=== PATIENT | female | born 1950 | race Caucasian/White ===

== ENCOUNTER 2017-03-09 09:29 | Observation (INO) ==
--- NOTE | 2017-03-09 10:10 | CT Report ---
Exam: CT brain without contrast Date: March 09, 2017 Comparison: None Reason: Headache and confusion The patient is an Emergency Department patient on March 09, 2017. Technique: Axial images of the head were obtained without the use of contrast. Total DLP was 1073.1 mGy*cm. Findings: No hydrocephalus or midline shift is present. There is no evidence of an acute infarction, recent intracranial hemorrhage or abnormal mass effect. The osseous structures appear intact. The mastoid air cells and visualized paranasal sinuses are clear. Impression: No acute intracranial abnormality is identified. The CT exam was performed using one or more of the following dose reduction techniques: Automated exposure control and adjustment of the mA and/or kV according to patient size. PROCEDURE INTERPRETED AT [facility] DEPARTMENT OF RADIOLOGY Final Report Signed by: Dr. Kun Aponte
[2017-03-09 10:38] LABS: Basophils % 0.5 % (0.0-0.8); Eosinophils # 0.4 10*3/uL (0.0-0.87); Eosinophils % 5.9 % (0.00-10.9); Hemoglobin 13.3 GM/DL (12.0-16.0); Immature Granulocytes % 0.4 %; Immature Granulocytes Absolute 0.03 #; Lymphocytes # 2.8 10*3/uL (1.4-4.0); Lymphocytes % 37.6 % (21.3-54.2); Mean Corpuscular HGB Conc 34.1 GM/DL (32-36); Mean Corpuscular Hemoglobin 30 PG (27-34); Mean Corpuscular Volume 88.6 FL (87-102); Mean Platelet Volume 12.2 FL (9.6-12.0); Monocytes # 0.5 10*3/uL (0.11-0.8); Monocytes % 7.3 % (1.7-12.7); Neutrophils # 3.6 10*3/uL (1.4-7.4); Neutrophils % 48.3 % (38.7-73.9); Platelet Count 227 T/CUMM (130-400); Red Cell Distribution Width 12.1 % (9.3-17.3); White Blood Count 7.4 T/CUMM (4-12)
--- NOTE | 2017-03-09 10:45 | EKG Report ---
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
[2017-03-09 11:02] LABS: Alanine Aminotransferase 25 U/L (13-56); Albumin 3.8 G/DL (3.4-5.0); Alkaline Phosphatase 96 U/L (45-117); Aspartate Amino Transferase 24 U/L (0-37); Blood Urea Nitrogen 11 MG/DL (7-18); Glucose 99 MG/DL (74-106); Osmolality,Calculated 275.5 MOS/KG (273-304); Potassium 4.1 MMOL/L (3.5-5.1); Sodium 139 MMOL/L (136-145); Total Protein 6.7 G/DL (6.4-8.3); Troponin I Only < 0.015 NG/ML (0.00-0.045)
[2017-03-09] MEDS ORDERED: ACETAMINOPHEN 500 MG TABLET PO STA (11:33)
[2017-03-09 11:36] LABS: Apearance,Urine CLEAR (Clear); Bilirubin,Urine Negative (Negative); Blood, Urine Negative (Negative); Glucose,Urine (UA) Negative (Negative); Ketones,Urine Negative (Negative); Nitrite,Urine Negative (Negative); Protein,Urine Negative; RBC,Urine 2 /HPF (0-4); Squamous Epithelial Cell,Urine Occasional /HPF (0-10); Urine Color Straw (Yellow); Urine Specific Gravity 1.004 (1.001-1.035); Urine Urobilinogen < 2.0 EU/DL (0.2-1.0); WBC,Urine 4 /HPF (0-6)
[2017-03-09] MEDS ORDERED: ACETAMINOPHEN 500 MG TABLET ONE (11:38)
--- NOTE | 2017-03-09 12:02 | Emergency Department Note ---
Carlos Gomez Brooke, am scribing for, and in the presence of, Kenan Mota Jr., MD 10:13. Nakul Gomez Marvin Jr., MD, personally performed the services described in this documentation, ascribed by Veronica Gonzalez in my presence, and it is both accurate and complete . Arrival - Arrival Chief Complaint: Altered Mental Status Stated Complaint: stroke ED Nursing Triage Note: reports pt had been confused since 0900 with a JACOB that started at 0845. Pt ambulatory without difficulty and denies focal weakness. Mode of Arrival: Ambulatory Limitations: No Limitations Source: Patient, Significant other (), Old Records Reviewed, RN Notes Reviewed Time Seen by Provider: 03/09/17 10:05 - History of Present Illness HPI Narrative: Patient is a 66 year old female who presents to the ED with c/o confusion. says she has been feeling "weird" this morning. says Patient started complaining of a sudden, sharp headache around 0845 this morning. She went to take a shower and when she got out, says she was in "normal" clothes and was supposed to be getting ready for sikh. He says Patient told him that "something is not right." Patient says she does not remember getting dressed after taking the shower. gave Patient five baby ASA before coming to the ED. On the way to the ED, says Patient started asking about her dad but states that her dad a month ago. Patient did not remember that her dad had and states that she "cried all the way to the hospital." Patient denies any current pain. She states she does not remember what she did last night. says she has been under a lot of stress lately. Patient has no medical problems. Onset (ago): hour(s) (2.5) Allergies/Adverse Reactions: Allergies Allergy/AdvReac Type Severity Reaction Status Date / Time No Known Allergies Allergy Verified 03/09/17 09:37 Review of System - Review of System 12 point system: reviewed and no additional remarkable complaints except as stated - Review of System Constitutional: Absent: fever Respiratory: Absent: respiratory distress Skin: Absent: rash Neurological: Present: headache, confusion Medical,Surgical,& Family Hx - Medical History Endocrine: History of: Thyroid Disorder - Social History Smoking Status: Never smoker Exam Physical Examination: General: Well-developed well-nourished, no apparent distress. Head: Normocephalic, atraumatic. Eyes: PERRLA, EOMI. Nose: No obvious acute deformities or discharge. Mouth: No obvious acute injury. Neck: Full range of motion without obvious pain. No midline tender to palpation. Lymphatic: no significant lymphadenopathy noted. Lungs: Clear to auscultation bilaterally, normal and equal air movement bilaterally, no obvious rales or wheezing. Heart: regular rate and rhythm, no obvious mummers. Abdomen: Soft nontender, nondistended, normal active bowel sounds. Skin: No obivous acute lesions noted Musculoskeletal: No gross deformities. Neurological: No focal findings, cranial nerves II through XII grossly normal. Patient follows directions, equal strength bilaterally, cranial nerves normal, patient does seem confused and little anxious. Does not remember previous events since last night. Psychiatric: Anxious, a little tearful : Deferred Vital Signs: Vital Signs Temperature 97.6 F 03/09/17 10:47 Pulse Rate 93 H 03/09/17 10:47 Respiratory Rate 18 03/09/17 10:47 Blood Pressure 153/102 03/09/17 10:47 O2 Sat by Pulse Oximetry 98 03/09/17 09:36 Course Course Narrative: Differential diagnosis: Stroke, global amnesia, stress related, - Reevaluation(s) Reevaluation #1: No obvious etiology for this acute onset of altered mental status and amnesia. No clinical symptoms of stroke and the CT is negative. Have discussed with the hospitalist and they will admit this patient. Time: 12:01 Results - Labs CBC & BMP: 03/09/17 10:25 03/09/17 10:24 Lab Results: I have reviewed the patients labs Labs: Laboratory Tests 03/09/17 10:25 WBC 7.4 RBC 4.40 Hgb 13.3 Hct 39.0 MCV 88.6 MCH 30 MCHC 34.1 RDW 12.1 Plt Count 227 MPV 12.2 H Neut % (Auto) 48.3 Lymph % (Auto) 37.6 White % (Auto) 7.3 Eos % (Auto) 5.9 Baso % (Auto) 0.5 Neut # (Auto) 3.6 Lymph # (Auto) 2.8 White # (Auto) 0.5 Eos # (Auto) 0.4 Baso # (Auto) 0.0 Immature Gran % 0.4 Nucleated RBC % 0.0 Immature Gran # 0.03 Nucleated RBCs # 0.00 Laboratory Tests 03/09/17 10:24 Sodium 139 Potassium 4.1 Chloride 103 Carbon Dioxide 27 Anion Gap 13.1 BUN 11 Creatinine 0.60 GFR Calculation 95 BUN/Creatinine Ratio 18.00 Glucose 99 Calculated Osmolality 275.5 Calcium 9.0 Total Bilirubin 0.40 AST 24 ALT 25 Alkaline Phosphatase 96 Troponin I < 0.015 Total Protein 6.7 Albumin 3.8 Globulin 2.9 Albumin/Globulin Ratio 1.3 Laboratory Tests 03/09/17 10:25 Urine Color Straw Urine Appearance Clear Urine pH 7.0 Ur Specific Entiat 1.004 Urine Protein Negative Urine Glucose (UA) Negative Urine Ketones Negative Urine Blood Negative Urine Nitrate Negative Urine Bilirubin Negative Urine Urobilinogen < 2.0 H Urine Leukocytes Negative Urine RBC 2 Urine WBC 4 Ur Squamous Epith Cells Occasional Ur Culture Indicated? Not indicated - EKG EKG results: interpreted by ERMD (Heart rate 71, normal sinus rhythm, regular rhythm, no obvious acute ST changes, interpretation is normal EKG) - Diagnostic Findings Procedure: CT: report reviewed by me, image reviewed by me (CT head/brain wo con : No acute intracranial abnormality is identified.) Disposition Clinical Impression: Acute mental status changes Case discussed with: patient, patient's family Disposition: Still a Patient Condition: Stable Time of Disposition: 12:02
[2017-03-09] MEDS ORDERED: ACETAMINOPHEN 325 MG TABLET PO PRN (12:58)
[2017-03-09] MEDS ORDERED: ONDANSETRON 4 MG/2 ML VIAL IV PRN (12:58)
[2017-03-09] MEDS ORDERED: ZALEPLON 5 MG CAPSULE PO PRN (12:58)
[2017-03-09] MEDS ORDERED: THIAMINE 200 MG/2 ML VIAL IV STA (12:58)
--- NOTE | 2017-03-09 13:06 | Hospitalist History & Physical ---
Assessment and Plan (1) Transient global amnesia Status: Acute Assessment and plan: Impression: 1. Probable transient global amnesia. She does not have much in the way of any risk factors for cerebrovascular disease, which is common in these patients anyway. Plan: We discussed management options. The says that he would feel safer if the patient were observed overnight, due to the fact that they are new in town and do not have any support structure. I think that is certainly a reasonable request. We will observe the patient overnight. Have given her some thiamine. We will get an MRI of the brain in the morning to ensure that there is no small stroke, although I think that this is highly unlikely. She should be ready for discharge in the morning. Current Visit: Yes History of Present Illness Chief complaint: Memory loss this morning History of present illness: Ms. Pendleton is a 66 year old female History is obtained from the patient and the , and they appear to be reliable informants. The patient reports no significant history of any medical problems. She has been hypothyroid for several years. She says that she had some "fuzzy thinking" a couple days prior to admission when she was at work. This was manifest primarily as some intermittent difficulty with memory. This resolved spontaneously. The morning of admission, she was apparently getting ready for christianity, and became amnestic. She forgot what day it was. She forgot what she was doing. She could not remember her telephone number or social security number. She had also forgotten that her father had recently. The did not note any difficulty with speech fluency, unsteady gait, muscle weakness, or complaints of paresthesias. The patient has noted an occipital headache off and on. She has no prior history of stroke or strokelike illness. There is no prior history of migraine. She is not hypertensive or diabetic. She does not smoke. She has no other neurologic complaints. Home Medications Medication Instructions Recorded Confirmed Type Aspirin EC Tab 81 mg PO 119903/09/17 03/09/17 History Cholecalciferol (Vitamin D3) 5,000 unit PO 119903/09/17 03/09/17 History [Vitamin D3] Cyanocobalamin (Vitamin B-12) 1,000 mcg PO 1200 03/09/17 03/09/17 History [Vitamin B-12] Levothyroxine Tab [Synthroid Tab] 50 mcg PO DAILY@0700 03/09/17 03/09/17 History Allergies Allergy/AdvReac Type Severity Reaction Status Date / Time No Known Allergies Allergy Verified 03/09/17 09:37 Medical,Surgical,& Family Hx - Medical History Neurology: No history of: Migraine Endocrine: History of: Thyroid Disorder - Social History Smoking Status: Never smoker Frequency of Alcohol Use: Occasionally Review of systems: Gen.: No weight loss or gain over the past year. Eyes: No glaucoma or cataracts. No change in visual acuity. Ears nose and throat: No change in auditory acuity, sinus problems, nasal allergies, or sore throat. Lungs: No asthma, bronchitis, or pneumonia. Cardiac: No chest pain, myocardial infarction, heart failure, stroke, murmur, or rheumatic fever. GI: No liver disease, nausea, vomiting, or diarrhea. : No hematuria, UTI, or stones. Neurologic: No seizures. Endocrine: hypothyroid for several years. Hematologic: No anemia or blood dyscrasias. Skin: No rashes or lesions. Musculoskeletal: Only age-related arthritic complaints. Exam - Constitutional Vitals: Period Temp Pulse Resp BP Sys/Shah Pulse Ox Last 24 Hr 97.6 F-97.6 F 93-93 18-18 153-153/102-102 98 General: She is a pleasant white lady in no distress. HEENT: Pupils are round and reactive. Extraocular muscles are normal. Gaze is conjugate. There is no nasal discharge. Mucous membranes are moist. Neck: Supple, without mass, bruit, or venous distention. Cardiac: Rhythm is regular. The carotids are normal. I don't hear murmur gallop or rub. Peripheral pulses are intact. Lungs: Clear without rales, wheezes, or rubs. Abdomen: Soft and nontender. Bowel sounds are present. No mass palpable. Rectal: Not done. Extremities: No cyanosis, clubbing, or edema. Skin: No significant rash or lesion. Neurologic: Cranial nerves I: Intact to coffee and alcohol II: Visual acuity is intact at least to finger counting. Visual blanco are intact to confrontation. Nondilated funduscopic examination is normal. III, IV, : Pupils are round and reactive to light and accommodation. Extraocular muscles are intact. V: Muscles of mastication are intact, sensory is intact in all 3 divisions. VII: Raises and lowers eyelids symmetrically. Facial expression is symmetrical. VIII: Auditory acuity is intact to finger rustle. There is no nystagmus. IX: Palate rises in the midline. X: Shoulder shrug is symmetric. XI: Is able to move had left and right XII: Is able to move tongue in the midline as well as side to side. Motor: Customer Contact Sales Associate strength, ankle flexors, ankle extensors, biceps, and triceps, are all 5/5. Sensory: Intact to proprioception, light touch, and pinprick. Cerebellar: Is able to perform finger to nose equally well bilaterally. Deep tendon reflexes: 2-3+/equal. No pathologic reflexes. Mental status: She is able to give a clear history. She has a lack of recall from the events of the morning, but otherwise fund of knowledge is above average. Results - Labs CBC & BMP: 03/09/17 10:25 03/09/17 10:24 - Diagnostic Findings Procedure: CT: report reviewed by me (Head CT is normal)
[2017-03-09] MEDS ORDERED: PNEUMOCOCCAL VACCINE (13 VALENT) 0.5 ML SYRINGE IM ONE (15:06)
[2017-03-09] MEDS: ENOXAPARIN 40 MG/0.4 ML SYRINGE SUBCUT SCH (15:57)
--- NOTE | 2017-03-09 16:58 | Magnetic Resonance Report ---
Referring physician: Parker Stark MD Exam: MRI brain without contrast Date: March 09, 2017 Comparison: CT brain without contrast March 09, 2017 Reason: Transient global ischemia The patient is an inpatient who was admitted on March 09, 2017. Technique: MRI of the brain was performed without the use of contrast. Obtained images include sagittal T1, axial diffusion-weighted, axial FLAIR, axial T2, coronal T2, axial gradient and axial T1 sequences. A 1.5 Rand magnet was used. Findings: There are a few small scattered foci of T2/FLAIR hyperintensity within the cerebral white matter bilaterally. This is nonspecific but likely represents minimal chronic microvascular ischemic change. Less likely considerations include a demyelinating process, viral process, vasculitis or Lyme disease. No hydrocephalus or midline shift is present. There is no evidence of recent intracranial hemorrhage, abnormal mass effect or an acute infarction. No abnormal extra-axial fluid collection is identified. Major vascular flow voids are visualized. The orbits, sella and brain stem are unremarkable. The paranasal sinuses and mastoid air cells are clear. Impression: 1. No acute intracranial process is identified. 2. Probable minimal chronic microvascular ischemic change. PROCEDURE INTERPRETED AT [facility] DEPARTMENT OF RADIOLOGY Final Report Signed by: Dr. Kun Aponte
[2017-03-10] MEDS: LEVOTHYROXINE 50 MCG TABLET PO SCH (06:28)
[2017-03-10] MEDS: ENOXAPARIN 40 MG/0.4 ML SYRINGE SUBCUT SCH (08:48)
[2017-03-10] MEDS: CHOLECALCIFEROL 1,000 UNIT TABLET PO SCH (11:57)
[2017-03-10] MEDS: CYANOCOBALAMIN 500 MCG TABLET PO SCH (11:57)
[2017-03-10] MEDS: ASPIRIN EC 81 MG TABLET PO SCH (11:57)
--- NOTE | 2017-03-10 15:27 | Hospitalist Progress Note ---
Assessment and Plan - Time spent with patient Time spent with patient: Greater than 30 minutes (1) Transient global amnesia Status: Acute Assessment and plan: MRI negative, neurology consult. Will obtain a TIA a workup and labs tomorrow. Current Visit: Yes Hospitalist: Subjective Interval history: No complaints. Exam - Constitutional Vitals: Period Temp Pulse Resp BP Sys/Shah Pulse Ox Last 24 Hr 97.6 F-99.1 F 71-86 18-20 102-115/64-80 93-98 General appearance: no acute distress - Head Head exam: Present: normocephalic, atraumatic - Eye Eye exam: Present: EOMI Pupils: Present: GILLIAN - ENT ENT exam: Present: normal exam - Neck Neck exam: Present: normal inspection - Respiratory Respiratory exam: Present: clear to auscultation bilaterally. Absent: rhonchi, wheezes - Cardiovascular Cardiovascular exam: Present: regular rate and rhythm. Absent: gallop, rubs, systolic murmur - GI/Abdominal GI/Abdominal exam: Present: normal bowel sounds, soft. Absent: distended, firm , guarding, tenderness, rebound - Extremities Exam Extremities exam: Present: normal inspection. Absent: calf tenderness, edema Results - Labs CBC & BMP: 03/09/17 10:25 03/09/17 10:24 Lab Results: I have reviewed the past 24 hour labs
--- NOTE | 2017-03-10 16:51 | Event Note ---
Patient gone for radiological testing
--- NOTE | 2017-03-10 17:51 | Ultrasound Report ---
Referring physician: Barbra Omalley MD Exam: Carotid ultrasound Date: March 10, 2017 Comparison: None Reason: TIA Technique: Duplex scan of the carotid arteries was performed using B-Mode/grayscale imaging and Doppler spectral analysis and color flow. Ultrasound images were captured and stored. Findings: There is minimal plaque at the carotid bifurcations. The right ICA measures 0.55 cm in diameter, and the left ICA measures 0.50 cm in diameter. The peak systolic velocities are as follows: Right CCA: 64 cm/s Right proximal ICA: 57 cm/s Right distal ICA: 78 cm/s Right ECA: 85 cm/s Left CCA: 76 cm/s Left proximal ICA: 64 cm/s Left distal ICA: 59 cm/s Left ECA: 78 cm/s The peak systolic ICA/CCA velocity ratios are as follows: 1.2 on the right and 0.8 on the left. Antegrade flow is present within both vertebral arteries. Impression: 1. Less than 50% stenosis of both cervical internal carotid arteries. 2. The Society of Radiologists in Ultrasound consensus conference criteria was used. PROCEDURE INTERPRETED AT [facility] DEPARTMENT OF RADIOLOGY Final Report Signed by: Dr. Kun Aponte
--- NOTE | 2017-03-10 18:47 | ECHO Report ---
Brittani Pendleton Exam Date: 03/10/2017 15:23 Referring Physician: Technologist: Tracey Sanchez RDCS Age: 66 Ht (in): 64 Wt (lb): 143 Gender: F Exam Location: [facility] Echo Indications: Transient global amnesia BP: 117 / 78 HR: 79 Rhythm: Sinus Technical Quality: Good IMPRESSIONS 1. Left ventricle is normal size systolic function with ejection fraction 60%. 2. Other cardiac chambers are normal size and function. 3. Cardiac valves are anatomically functioning normal without Doppler abnormality. 4. There is no evidence of elevated right-sided pressures. 5. This is an unremarkable echocardiogram. MEASUREMENTS (Male / Female) Normal Values 2D ECHO LV Diastolic Diameter PLAX 3.8 cm 4.2 - 5.9 / 3.9 - 5.3 cm LV Systolic Diameter PLAX 2.6 cm LV Fractional Shortening PLAX 31.5 % IVS Diastolic Thickness 0.8 cm 0.6 - 1.0 / 0.6 - 0.9 cm LVPW Diastolic Thickness 0.8 cm 0.6 - 1.0 / 0.6 - 0.9 cm RV Internal Dim ED PLAX 2.4 cm Aortic Root Diameter 2.8 cm LA Systolic Diameter LX 2.6 cm 3.0 - 4.0 / 2.7 - 3.8 cm DOPPLER TR Peak Velocity 255.0 cm/s TR Peak Gradient 26.0 mmHg FINDINGS Left Ventricle Normal left ventricular cavity size. Normal left ventricular wall thickness. Left ventricular ejection fraction is estimated at 60 %. Right Ventricle The right ventricle is normal in size and function. Right Atrium The right atrium is normal in size. Left Atrium The left atrium is normal in size. Mitral Valve Morphologically normal mitral valve without significant stenosis or prolapse. There is no mitral regurgitation. Aortic Valve Morphologically normal aortic valve without significant sclerosis or stenosis. There is no aortic regurgitation. Tricuspid Valve Morphologically normal tricuspid valve. Trace tricuspid valve regurgitation. Tricuspid regurgitation velocities suggest a PAP of 36 mmHg. Pulmonic Valve Morphologically normal pulmonic valve. Trace pulmonary valve regurgitation. Pericardium Normal pericardium without effusion. Aorta Normal ascending aorta dimension. Franko Cox MD (Electronically Signed) Final Date: 10 Mar 2017 18:47
[2017-03-11 06:22] LABS: Basophils # 0.1 10*3/uL (0.0-0.2); Basophils % 0.7 % (0.0-0.8); Eosinophils # 0.5 10*3/uL (0.0-0.87); Eosinophils % 6.9 % (0.00-10.9); Hematocrit 40.6 VOL% (35.7-47.0); Hemoglobin 13.2 GM/DL (12.0-16.0); Immature Granulocytes % 0.3 %; Immature Granulocytes Absolute 0.02 #; Lymphocytes # 2.6 10*3/uL (1.4-4.0); Mean Corpuscular HGB Conc 32.5 GM/DL (32-36); Mean Corpuscular Hemoglobin 30 PG (27-34); Mean Corpuscular Volume 92.5 FL (87-102); Mean Platelet Volume 12.1 FL (9.6-12.0); Monocytes # 0.6 10*3/uL (0.11-0.8); Monocytes % 8.4 % (1.7-12.7); Neutrophils # 3.5 10*3/uL (1.4-7.4); Neutrophils % 47.7 % (38.7-73.9); Platelet Count 217 T/CUMM (130-400); Red Blood Count 4.39 MC/CUMM (3.8-5.5); Red Cell Distribution Width 12.2 % (9.3-17.3); White Blood Count 7.2 T/CUMM (4-12)
[2017-03-11 07:00] LABS: Risk Ratio 2.08; VLDL CHOLESTEROL 13.6 MG/DL
[2017-03-11 07:07] LABS: Calcium 9.1 MG/DL (8.5-10.1); Free T4 (Free Thyroxine) 1.21 NG/DL (0.76-1.46); Osmolality,Calculated 279.3 MOS/KG (273-304); Potassium 4.3 MMOL/L (3.5-5.1); Thyroid Stimulating Hormone 3.22 uIU/ml (0.358-3.74)
[2017-03-11] MEDS: LEVOTHYROXINE 50 MCG TABLET PO SCH (10:25)
[2017-03-11] MEDS: ENOXAPARIN 40 MG/0.4 ML SYRINGE SUBCUT SCH (10:25)
[2017-03-11] MEDS: CHOLECALCIFEROL 1,000 UNIT TABLET PO SCH (11:34)
[2017-03-11] MEDS: ASPIRIN EC 81 MG TABLET PO SCH (11:34)
[2017-03-11] MEDS: CYANOCOBALAMIN 500 MCG TABLET PO SCH (11:34)
--- NOTE | 2017-03-11 14:15 | Discharge Summary ---
Hospital Course - Hospital Course Hospital Course: Ms. Pendleton was admitted for evaluation of temporary amnestic symptoms. These symptoms lasted for about 1-1/2 hours. By admission had resolved. MRI of the patient's brain was unremarkable. carotid ultrasound revealed no hemodynamically significant stenosis. Echocardiogram was unremarkable. LDL was 90. Neurology evaluated the patient and recommended aspirin and Plavix. Patient was given a prescription for Plavix. She will follow-up with neurology as an outpatient in 6 weeks. I spent 35 minutes coordinating this discharge. - Time spent with patient Time with patient DS: Greater than 30 minutes Diagnosis - Discharge Diagnosis (1) Transient global amnesia Status: Acute Discharge Plan - Discharge Data Disposition: Disch To Home/Self Care Condition at Discharge: Stable Discharge Diet: advance to your usual diet Activity: resume usual activities as tolerated Hygiene: no restrictions - Discharge Medications New Clopidogrel [Plavix] 75 mg PO DAILY #30 tablet Continue Levothyroxine Tab [Synthroid Tab] 50 mcg PO DAILY@0700 Cholecalciferol (Vitamin D3) [Vitamin D3] 5,000 unit PO 1200 Cyanocobalamin (Vitamin B-12) [Vitamin B-12] 1,000 mcg PO 1200 Aspirin EC Tab 81 mg PO 1200 - Follow Up or Referral - Forms/Instructions Exam - Constitutional Vitals: Period Temp Pulse Resp BP Sys/Shah Pulse Ox Last 24 Hr 97.7 F-98.7 F 69-82 18-20 101-117/63-78 94-99 General appearance: normal weight, no acute distress - Head Head exam: Present: normal inspection, normocephalic, atraumatic - Eye Eye exam: Present: EOMI Pupils: Present: GILLIAN - ENT ENT exam: Present: normal exam - Neck Neck exam: Present: normal inspection - Respiratory Respiratory exam: Present: clear to auscultation bilaterally. Absent: accessory muscle use, prolonged expiratory phase, wheezes - Cardiovascular Cardiovascular exam: Present: bradycardia. Absent: carotid bruit, irregular rhythm, systolic murmur - GI/Abdominal GI/Abdominal exam: Present: normal bowel sounds. Absent: ascites, distended, hypoactive bowel sounds, tenderness - Neurological Exam Neurological exam: Present: alert, oriented X3, CN II-XII intact Discharge Results Labs on day of discharge: Labs from last 24 hours 03/11/17 03/11/17 03/11/17 05:11 05:10 05:10 WBC 7.2 RBC 4.39 Hgb 13.2 Hct 40.6 MCV 92.5 MCH 30 MCHC 32.5 RDW 12.2 Plt Count 217 MPV 12.1 H Neut % (Auto) 47.7 Lymph % (Auto) 36.0 [place] % (Auto) 8.4 Eos % (Auto) 6.9 Baso % (Auto) 0.7 Neut # (Auto) 3.5 Lymph # (Auto) 2.6 [place] # (Auto) 0.6 Eos # (Auto) 0.5 Baso # (Auto) 0.1 Immature Gran % 0.3 Nucleated RBC % 0.0 Immature Gran # 0.02 Nucleated RBCs # 0.00 Sodium 141 Potassium 4.3 Chloride 105 Carbon Dioxide 30 Anion Gap 10.3 BUN 13 Creatinine 0.70 GFR Calculation 89 BUN/Creatinine Ratio 18.00 Glucose 88 Calculated Osmolality 279.3 Calcium 9.1 Triglycerides Cholesterol LDL Cholesterol VLDL Cholesterol HDL Cholesterol Heart Disease Risk Ratio Free T4 1.21 TSH 3rd Generation 3.220 03/11/17 05:10 WBC RBC Hgb Hct MCV MCH MCHC RDW Plt Count MPV Neut % (Auto) Lymph % (Auto) [place] % (Auto) Eos % (Auto) Baso % (Auto) Neut # (Auto) Lymph # (Auto) [place] # (Auto) Eos # (Auto) Baso # (Auto) Immature Gran % Nucleated RBC % Immature Gran # Nucleated RBCs # Sodium Potassium Chloride Carbon Dioxide Anion Gap BUN Creatinine GFR Calculation BUN/Creatinine Ratio Glucose Calculated Osmolality Calcium Triglycerides 68 Cholesterol 187 LDL Cholesterol 90.0 VLDL Cholesterol 13.6 HDL Cholesterol 90 H Heart Disease Risk Ratio 2.08 Free T4 TSH 3rd Generation DS: Provider Date of admission: 03/09/17 12:58 Primary care physician: Barber Conrad MD Attending physician on admission: Parker Stark MD Consults: 03/09/17 13:58 Consult to Pharmacy [CONS] Routine Reason for Pharmacy Consult: Adjust Meds Renal Funct 03/10/17 09:01 Consult to Physician [CONS] Routine Comment: TIA Consulting Provider: Chadwick Bishop Consult to Specialist Group: Neurology When should Consulting Provider be notified: Now Person Notified: MARCELL Date Notified: 03/10/17 Time Notified: 09:30 Discharging clinician: Barbra Omalley MD Expected date of discharge: 03/11/17
--- NOTE | 2017-03-11 14:51 | Neurology Consult Note ---
History of Present Illness History of present illness: Ms. Pendleton is a 66 year old right-handed white lady without significant past medical history admitted to the hospital with one episode of memory difficulties lasted for 1-1/2 hours or so. Patient reported that she just could not recall and 1-1/2-2 hours yesterday. She was talking walking and eating normally however she just do not remember what happened for those 2 hours. MRI of the brain is unremarkable for any acute pathology. She is back to her baseline. Never had any similar symptoms before Home Medications Medication Instructions Recorded Confirmed Type Aspirin EC Tab 81 mg PO 1200 03/09/17 03/09/17 History Cholecalciferol (Vitamin D3) 5,000 unit PO 119903/09/17 03/09/17 History [Vitamin D3] Cyanocobalamin (Vitamin B-12) 1,000 mcg PO 1200 03/09/17 03/09/17 History [Vitamin B-12] Levothyroxine Tab [Synthroid Tab] 50 mcg PO DAILY@0700 03/09/17 03/09/17 History Clopidogrel [Plavix] 75 mg PO DAILY #30 tablet 03/11/17 Rx Allergies Allergy/AdvReac Type Severity Reaction Status Date / Time No Known Allergies Allergy Verified 03/09/17 09:37 12 point system: reviewed and no additional remarkable complaints except as stated Medical,Surgical,& Family Hx - Medical History Neurology: No history of: Migraine Endocrine: History of: Thyroid Disorder Genitourinary: History of: Recurring Urinary Tract Infections Musculoskeletal: History of: Musculoskeletal Problems (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 NECK: Neck is supple. There is no JVD. No carotid bruits present. No thyroid masses. CVS: First and second heart sounds are normal. There is no S3 present. Regular rate and rhythm. RESPIRATORY: Lungs are clear to auscultation without any rales or rhonchi. ABDOMEN: Soft and non-tender. Bowel sounds are present. There is no hepatosplenomegaly. EXT: There is no palpable edema. Peripheral pulses are present. Skin: No rashes Central Nervous system: General: Alert, awake and Oriented x 3 Speech: Fluent Comprehension: Intact and normal Facial expressions: Normal Cranial Nerves: CN1/Olfactory: Normal CN II/ Optic: Normal, Visual Ott unreliable CN III, and : GILLIAN & EOMI CN V: Normal & intact CN VII: face is symmetric CNVIII: Normal CN XI/X/XI/XII: Intact and Normal Motor: Bulk and Tone is normal. Strength in the right 5/5 Strength in the left 5/5 Sensory: Grossly intact for all the modalities of PP, LT and temp sense Reflexes: 1+ and symmetrical Cerebellar function: Normal finger to nose and heel to nicole testing. Toes: Equivocal Gait: Normal heel to heel and toe to toe and tandem walk. Results - Labs CBC & BMP: 03/11/17 05:11 03/11/17 05:10 Assessment and Plan (1) Transient global amnesia Status: Acute Assessment and plan: Continue baby aspirin a day Add Plavix 75 mg po daily Follow up in 6-8 week Current Visit: Yes Specialty Discharge - Follow Up or Referrals Follow up with: Chadwick Bishop MD [Physician] - 04/29/17 10:00 am
[2017-03-11 15:30] VITALS: BP 117/81
== END 2017-03-11 15:30 | disposition home or self-care (01) ==
LOC: N.EDINP 09:29 → N.ED 09:29 → SUATTDRO 12:58 → N.2E 13:50
PROVIDERS: ADMIT Internal Medicine Geriatric Medicine; ATTEND Internal Medicine